=== PATIENT | male | born 1960 | race African-American/Black ===

== ENCOUNTER 2017-07-29 15:56 | Emergency (ER) | payer MEDICARE ==
[2017-07-29] MEDS ORDERED: Amoxicillin 125 mg/5 ml Oral Suspension ONE (16:10)
[2017-07-29] MEDS ORDERED: cefTRIAXone\\ROCEPHIN 1 GM VIAL ONE (16:16)
== END 2017-07-29 16:30 | disposition home or self-care (01) ==
LOC: BURERS 15:56
DX: J20.9 Acute bronchitis, unspecified (principal); F20.9 Schizophrenia, unspecified; F17.210 Nicotine dependence, cigarettes, uncomplicated; Z79.899 Other long term (current) drug therapy
CPT/HCPCS: 96372; J0696

== ENCOUNTER 2018-07-10 22:09 | Emergency (ER) | payer MEDICARE ==
[2018-07-10] MEDS ORDERED: Ketorolac Tromethamine 30 MG/ML VIAL ONE (22:13)
[2018-07-10] MEDS ORDERED: HYDROcodone/Acetaminophen 10/325 mg Tablet ONE (23:05)
[2018-07-10] MEDS ORDERED: AMOXicillin 250 MG CAP ONE (23:05)
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
== END 2018-07-11 00:15 | disposition home or self-care (01) ==
LOC: BURERS 22:09
DX: S02.602A Fracture of unspecified part of body of left mandible, initial encounter for closed fracture (principal); S00.83XA Contusion of other part of head, initial encounter; F20.9 Schizophrenia, unspecified; F17.210 Nicotine dependence, cigarettes, uncomplicated; Z79.899 Other long term (current) drug therapy; Y04.0XXA Assault by unarmed brawl or fight, initial encounter
CPT/HCPCS: 70450; 70486; 96372; J1885

== ENCOUNTER 2018-12-16 12:28 | Emergency (ER) | payer MEDICARE ==
[2018-12-16 14:16] LABS: #Basophils 0.1 thou/uL (0.0-0.2); #Lymphocytes 1.1 thou/uL (1.20-3.40); #Monocytes 0.8 thou/uL (0.11-0.59); #Neutrophils 9.7 thou/uL (1.40-6.50); %Basophils 0.7 % (0.0-1.0); %Eosinophils 0.3 % (0.0-10.0); %Lymphocytes 9.6 % (21.0-51.0); %Monocytes 6.6 % (0.0-10.0); %Neutrophils 82.7 % (42.0-75.0); Hemoglobin 13.3 g/dL (14.0-18.0); Mean Corpuscular HGB CONC 32.4 g/dL (32.0-36.0); Mean Corpuscular Volume 89.5 fL (78.0-98.0); Mean Platelet Volume 7.1 fL (7.4-10.4); Platelet Count 278 thou/uL (130-400); RBC Distribution Width 13.1 % (11.5-14.5); Red Blood Cell (RBC) Count 4.58 mill/uL (4.70-6.10); White Blood Cell (WBC) Count 11.7 thou/uL (4.8-10.8)
[2018-12-16 14:20] LABS: ALT (SGPT) 8 U/L (8-55); AST (SGOT) 16 U/L (5-34); Albumin 3.9 g/dL (3.5-5.0); Alkaline Phosphatase 82 U/L (40-150); Anion Gap 16 mmol/L (10-20); BUN (Urea Nitrogen) 7 mg/dL (8.4-25.7); Bilirubin, Total 0.5 mg/dL (0.2-1.2); Calc. Creatinine Clearance 0 mL/min (70-130); Calcium 9.5 mg/dL (7.8-10.44); Carbon Dioxide 22 mmol/L (22-29); Chloride 103 mmol/L (98-107); Estimated GFR-MDRD Greater than 90; Globulin 4.1 g/dL (2.4-3.5); Glucose 99 mg/dL (70-105); Potassium 3.4 mmol/L (3.5-5.1); Sodium 138 mmol/L (136-145)
[2018-12-16] MEDS ORDERED: cefTRIAXone\\ROCEPHIN 1 GM VIAL ONE (15:07)
[2018-12-16] MEDS ORDERED: Sodium Chloride 0.9% 100 ML ONE (15:07)
--- NOTE | 2018-12-16 18:36 | RAD ---
CHEST TWO VIEWS: 12/16/18 Comparison is made with a 10/22/15 study. There has been the interval recurrence of bibasilar infiltrate posteriorly. Pneumonia is presumed. Th e upper lobes are clear. The heart size is normal. IMPRESSION: Bibasilar infiltrate suggestive of pneumonia. POS: HOME
== END 2018-12-16 15:27 | disposition home or self-care (01) ==
LOC: BURERS 12:28
DX: J18.9 Pneumonia, unspecified organism (principal); F20.9 Schizophrenia, unspecified; F17.210 Nicotine dependence, cigarettes, uncomplicated; Z79.899 Other long term (current) drug therapy
CPT/HCPCS: 36415; 71046; 80053; 83605; 85025; 87040; 87804; 96365; J0696; J7050

== ENCOUNTER 2019-09-10 14:39 | Emergency (ER) | payer MEDICARE ==
[2019-09-10] MEDS ORDERED: Ketorolac Tromethamine 30 MG/ML VIAL ONE (15:23)
== END 2019-09-10 15:22 | disposition home or self-care (01) ==
LOC: BURERS 14:39
DX: M54.2 Cervicalgia (principal); M54.5 Low back pain; F20.9 Schizophrenia, unspecified; F17.210 Nicotine dependence, cigarettes, uncomplicated; V89.2XXA Person injured in unspecified motor-vehicle accident, traffic, initial encounter
CPT/HCPCS: 96372; 99283; J1885

== ENCOUNTER 2021-06-06 21:21 | Emergency (ER) | payer MEDICARE ==
[2021-06-06] MEDS ORDERED: Dexamethasone 10 MG/ML VIAL ONE (22:36)
[2021-06-07 16:14] LABS: SARS-CoV-2 PCR by NAA DETECTED (NotDetected)
== END 2021-06-06 23:02 | disposition home or self-care (01) ==
LOC: BURERS 21:21
DX: U07.1 COVID-19 (principal); F17.210 Nicotine dependence, cigarettes, uncomplicated
CPT/HCPCS: 71045; 87804 ×2; 99284; U0003; U0005; J1100